=== PATIENT | female | born 1960 | race Caucasian/White ===

== ENCOUNTER 2019-03-24 13:52 | Day surgery (SDC) | payer MEDICAID, OTHER ==
[~2019-03-24] VITALS: Ht 160 cm; Wt 83.5 kg
[2019-03-24] VITALS (12 sets, daily range): BP systolic 111–144; BP diastolic 56–66; PULSE 51–67; RESP 16–26; Ht 160 cm; Wt 83.5 kg
[~2019-03-24 13:52] MED LIST: FOLI-49 PO; LEVO112T57 PO; LORA10TA3 PO; METH5TAB PO; MINE3.5O31 BOTH EYES; TRAM50TA2 PO
[2019-03-24] MEDS ORDERED: LACTATED RINGER'S 1,000 ML IV SCH (15:00)
[2019-03-24] MEDS ORDERED: MIDAZOLAM 1 MG/ML 2 ML INJ ONE (16:32)
[2019-03-24] MEDS ORDERED: FENTAnyl 50 MCG/ML VIAL ONE (16:33)
[2019-03-24] MEDS ORDERED: CEFAZOLIN 1 GM INJ ONE (17:12)
[2019-03-24] MEDS ORDERED: BUPIVACAINE 0.5% 30 ML VIAL INJ ONE (17:22)
[2019-03-24] MEDS ORDERED: hydrALAzine 20 MG INJ IV PRN (17:30)
[2019-03-24] MEDS ORDERED: DIPHENHYDRAMINE 50 MG INJ IV PRN (17:30)
[2019-03-24] MEDS ORDERED: ALBUTEROL 0.083% (NEB) 2.5 MG/3 ML AMP HHN PRN (17:30)
[2019-03-24] MEDS ORDERED: LABETALOL HCL 20MG INJ IV PRN (17:30)
[2019-03-24] MEDS ORDERED: FENTAnyl 50 MCG/ML VIAL IV PRN ×3 (17:30)
[2019-03-24] MEDS ORDERED: OXYCODONE/ACETAMINOPHEN (5/325) TAB PO PRN ×2 (17:30)
[2019-03-24] MEDS ORDERED: KETOROLAC 30 MG INJ IV PRN (17:30)
[2019-03-24] MEDS ORDERED: EPHEDrine 25 MG/5 ML SYG IV PRN (17:30)
[2019-03-24] MEDS ORDERED: ONDANSETRON 4 MG INJ IV PRN (17:30)
[2019-03-24] MEDS ORDERED: MEPERIDINE 25 MG INJ IV PRN (17:30)
== END 2019-03-24 18:55 | disposition home or self-care (01) ==
LOC: SDS 13:52
PROVIDERS: ATTEND Orthopaedic Surgery Hand Surgery
DX: B38.9 Coccidioidomycosis, unspecified (principal); E03.9 Hypothyroidism, unspecified; E78.5 Hyperlipidemia, unspecified; M06.9 Rheumatoid arthritis, unspecified
CPT/HCPCS: 26160; 88307; 88312; J0690; J2250; J3010; Z7512; Z7610